=== PATIENT | male | born 1965 ===

== ENCOUNTER 2018-10-10 23:04 | Emergency (ER) | payer SELFPAY ==
[2018-10-10 23:12] VITALS: BP 160/85; PULSE 82; TEMP 98.2; O2SAT 97
[2018-10-10] MEDS ORDERED: Lidocaine 2% MPF (5 ml) Inj ONE (23:57)
[2018-10-11] MEDS ORDERED: Bacitracin 500 Units/gm Oint Foilpak UD ONE (00:39)
--- NOTE | 2018-10-11 00:39 | C.PDOC ---
History Of Present Illness 53 year olds male presents to the ED for evaluation of a laceration to his left wrist. Patient reports that he slipped when getting out of his truck, patient cut his left wrist against the sharp edge of his truck. Patient denies headache, head injury, rash, weakness, numbness.No suicidal attempt Time Seen by Provider: 10/10/18 23:36 Chief Complaint (Nursing): Abnormal Skin Integrity History Per: Patient History/Exam Limitations: no limitations Onset/Duration Of Symptoms: Hrs Current Symptoms Are (Timing): Still Present Location Of Injury: Left: Hand Quality Of Symptoms: Painful Recent travel outside of the [place]: No Additional History Per: Patient Past Medical History Reviewed: Historical Data, Nursing Documentation, Vital Signs Vital Signs: Last Vital Signs Temp 98.2 F 10/10/18 23:10 Pulse 82 10/10/18 23:10 Resp 18 10/10/18 23:10 BP 160/85 H 10/10/18 23:10 Pulse Ox 97 10/10/18 23:10 - Medical History PMH: No Chronic Diseases Surgical History: No Surg Hx Family History: States: Unknown Family Hx - Social History Hx Alcohol Use: No Hx Substance Use: No - Immunization History Hx Tetanus Toxoid Vaccination: No Hx Influenza Vaccination: No Hx Pneumococcal Vaccination: No Review Of Systems Constitutional: Negative for: Fever, Chills ENT: Negative for: Nose Discharge, Nose Congestion Musculoskeletal: Positive for: Hand Pain Skin: Positive for: Other (laceration). Negative for: Rash Neurological: Negative for: Weakness, Numbness, Headache, Dizziness Physical Exam - Physical Exam Appears: Non-toxic, No Acute Distress Skin: Normal Color, Warm, Dry Head: Atraumatic, Normacephalic Eye(s): bilateral: Normal Inspection Neck: Normal ROM, Supple Extremity: Normal ROM, No Tenderness, Capillary Refill (< 2 seconds), No Swelling, Other (5 cm laceration left radial aspect of the wrist) Pulses: Left Radial: Normal, Right Radial: Normal Neurological/Psych: Oriented x3, Normal Speech, Normal Cognition, Normal Motor, Normal Sensation Gait: Steady ED Course And Treatment O2 Sat by Pulse Oximetry: 97 (ON RA) Pulse Ox Interpretation: Normal Progress Note: On reassessment, patient is resting comfortably, and is in no acute distress. Patient was instructed to follow up with physician/clinic in 1-2 days for further evaluation. Laceration - Laceration Repair left lateral wrist Wound Length (In cm): 5 Description Of Wound: Linear Wound Cleansed With: Betadine, Sterile Saline Anesthesia: Lidocaine 2% Wound Examination: Irrigated With Saline, No FB With Wound Exploration, No Tendon Injury With Wound Exploration Wound Closure: Suture (x 5) Suture Technique And Material Used: Nylon Wound Complexity: Simple (Pt tolerated well, area dressed) Disposition Counseled Patient/Family Regarding: Diagnosis, Need For Followup - Disposition Referrals: [facility] [Outside] Disposition: HOME/ ROUTINE Disposition Time: 00:37 Condition: STABLE Additional Instructions: Follow wound care instructions Suture removal in 10 days Return to ER if redness, bleeding, discahrge, numbness or worse Instructions: Laceration Repair With Stitches (DC) Forms: [employer] (Croatian), [employer] (Upper Sorbian) Print Language: BELARUSIAN - Clinical Impression Clinical Impression: Laceration of wrist - PA / TOW OPERATOR / Resident Statement MD/DO has reviewed & agrees with the documentation as recorded. - Scribe Statement The provider has reviewed the documentation as recorded by the Scribe Jerrod Johns All medical record entries made by the [employer]rib[employer] were at my direction and personally dictated by me. I have reviewed the chart and agree that the record accurately reflects my personal performance of the history, physical exam, medical decision making, and the department course for this patient. I have also personally directed, reviewed, and agree with the discharge instructions and disposition.
[2018-10-11 00:46] VITALS: RESP 20
== END 2018-10-11 00:45 | disposition home or self-care (01) ==
LOC: C.ER 23:04
DX: S61.512A Laceration without foreign body of left wrist, initial encounter (principal); W01.10XA Fall on same level from slipping, tripping and stumbling with subsequent striking against unspecified object, initial encounter